=== PATIENT | female | born 1985 | race Caucasian/White ===

== ENCOUNTER 2020-08-07 20:12 | Emergency (ER) | payer OTHER ==
[2020-08-07] MEDS ORDERED: Ibuprofen 200 MG TAB ONE (21:11)
[2020-08-07] MEDS ORDERED: Acetaminophen 500 MG TAB ONE (21:11)
== END 2020-08-07 22:54 | disposition home or self-care (01) ==
LOC: CSHERS 20:12
DX: M54.6 Pain in thoracic spine (principal); F17.210 Nicotine dependence, cigarettes, uncomplicated; V43.52XA Car driver injured in collision with other type car in traffic accident, initial encounter
CPT/HCPCS: 71045; G0390